=== PATIENT | female | born 1955 | race Native Hawaiian/Other Pacific Islander ===

== ENCOUNTER → 2018-04-29 08:22 | Outpatient (CLI) | payer OTHER | END | disposition home or self-care (01) | LOC: AMB 08:22 | DX: Z04.1 Encounter for examination and observation following transport accident (principal) ==

== ENCOUNTER 2021-05-23 09:26 | Outpatient (CLI) | payer OTHER | END 2021-05-23 19:09 | disposition home or self-care (01) | LOC: MAMMO 09:26 | PROVIDERS: ATTEND Nurse Practitioner Primary Care | DX: Z12.31 Encounter for screening mammogram for malignant neoplasm of breast (principal) ==